=== PATIENT | female | born 1990 ===

== ENCOUNTER 2016-10-13 06:56 | Emergency (ER) | payer MEDICAID ==
[2016-10-13 07:12] VITALS: O2SAT 97
[2016-10-13] MEDS ORDERED: Albuterol-Ipratrop 3 mg / 0.5 (3 ml) UD INH STA (07:32)
[2016-10-13] MEDS ORDERED: Sodium Chloride 0.9% 1,000 ML IV STA (07:32)
[2016-10-13] MEDS ORDERED: Albuterol 0.083% Inhal Sol (2.5 mg/3 mL) UD INH STA (07:33)
[2016-10-13] MEDS ORDERED: Magnesium Sulfate 2 gm/50 ml 2 GM/50 ML BAG IV STA (07:40)
--- NOTE | 2016-10-13 07:44 | ED PDOC ---
HPI: SOB/CHF/COPD Time Seen by Provider: 10/13/16 07:09 Chief Complaint (Nursing): Shortness Of Breath Chief Complaint (Provider): Shortness of Breath History Per: Patient History/Exam Limitations: no limitations Onset/Duration Of Symptoms: Hrs (x2) Current Symptoms Are (Timing): Still Present Additional Complaint(s): Amara Dash is a 26 year old female with a past medical history of asthma presenting to the ED for an evaluation of shortness of breath beginning at 6:00 AM prior to arrival. The patient states she uses a Nebulizer when necessary for asthma, reporting 3 treatments without relief prior to arrival. The patient reports her last menstrual period was 1 month ago. She denies fever or chills. PMD: [place] Past Medical History Reviewed: Historical Data, Nursing Documentation, Vital Signs Vital Signs: Last Vital Signs Temp 98.2 F 10/13/16 07:09 Pulse 117 H 10/13/16 07:09 Resp 18 10/13/16 08:19 BP 123/74 10/13/16 07:09 Pulse Ox 97 10/13/16 08:29 - Medical History PMH: Asthma - Surgical History Other surgeries: removal of kidney stones - Family History Family History: States: Unknown Family Hx - Social History Current smoker - smoking cessation education provided: No Ex-Smoker (has not smoked in the last 12 months): No Alcohol: None Drugs: Denies - Allergies Allergies/Adverse Reactions: Allergies Allergy/AdvReac Type Severity Reaction Status Date / Time Penicillins Allergy SHORTNESS Verified 10/13/16 07:09 OF BREATH shellfish derived Allergy SHORTNESS Verified 10/13/16 07:09 OF BREATH Review of Systems ROS Statement: Except As Marked, All Systems Reviewed And Found Negative Respiratory: Positive for: Shortness of Breath Physical Exam - Reviewed Nursing Documentation Reviewed: Yes Vital Signs Reviewed: Yes - Physical Exam Appears: Positive for: Well, Non-toxic, No Acute Distress Head Exam: Positive for: ATRAUMATIC, NORMAL INSPECTION, NORMOCEPHALIC Eye Exam: Positive for: EOMI, Normal appearance, PERRL ENT: Positive for: Normal ENT Inspection, Pharynx Is (normal; oral mucous membranes are normal ). Negative for: Tonsillar Exudate Cardiovascular/Chest: Positive for: Regular Rate, Rhythm, Chest Non Tender Respiratory: Positive for: Decreased Breath Sounds (on expiration ), Wheezing ( faint wheezing bilaterally), Other (distant breath sounds ). Negative for: Crackles, Rales, Respiratory Distress Gastrointestinal/Abdominal: Positive for: Normal Exam, Bowel Sounds, Soft. Negative for: Tenderness Neurologic/Psych: Positive for: Alert, Oriented - Laboratory Results Result Diagrams: 10/13/16 07:59 10/13/16 07:59 - ECG ECG: Positive for: Viewed By Me ECG Rhythm: Positive for: Sinus Tachycardia O2 Sat by Pulse Oximetry: 97 (RA) Pulse Ox Interpretation: Normal - Progress Re-evaluation Time: 09:50 Condition: Re-examined, Improved (aeration is markedly improved. Will discharge) Medical Decision Making Medical Decision Makin:09 Impression: Exacerbation of asthma Plan: Pt reports refuses to take steroids because she "does not like the way they feel ". Will rx magnesium 2 mg IV with Duoneb * Basic metabolic panel * ED urine * CBC (with differential) * Peak Flow pre/post tx * Albuterol 0.083% Inh lamin 2.5/3 ml UD 2.5 mg Inh * Duoneb 3 mg/0.5 mg (3ml) UD 3 ml Inh * Magnesium Sulfate 2 gm/50 ml water IV * Sodium chloride 0.9% 1,000 ml IV 1,000 mls/hr * Reevaluation Scribe Attestation: Documented by Linda Dalton, acting as a scribe for Emily Vargas MD. Provider Scribe Attestation: All medical record entries made by the Scribe were at my direction and personally dictated by me. I have reviewed the chart and agree that the record accurately reflects my personal performance of the history, physical exam, medical decision making, and the department course for this patient. I have also personally directed, reviewed, and agree with the discharge instructions and disposition. Disposition - Clinical Impression Clinical Impression: Asthma exacerbation - Patient ED Disposition Is Patient to be Admitted: No Doctor Will See Patient In The: Office Counseled Patient/Family Regarding: Diagnosis, Need For Followup - Disposition [facility] [[facility]] Disposition: Routine/Home Disposition Time: 10:00 Condition: IMPROVED Instructions: Asthma (ED) Forms: [facility] (Wolof) - POA Present On Arrival: None
[2016-10-13 08:03] LABS: BASO # 0.1 K/uL (0.0-0.2); BASO % 0.9 % (0.0-2.0); EOS # 0.3 K/uL (0.0-0.7); EOS % 4.4 % (0.0-4.0); HEMATOCRIT 38.5 % (34.0-47.0); LYMPH # 2.1 K/uL (1.0-4.3); LYMPH % 35.9 % (20.0-40.0); MEAN CELL VOLUME 92.6 fl (81.0-99.0); MEAN CORPUSCULAR HEMOGLOBIN 31.4 pg (27.0-31.0); MEAN CORPUSCULAR HGB CONC 33.9 g/dL (33.0-37.0); MEAN PLATELET VOLUME 8.5 fl (7.2-11.7); MONO # 0.6 K/uL (0.0-0.8); MONO % 9.7 % (0.0-10.0); NEUT # 2.9 K/uL (1.8-7.0); NEUT % 49.1 % (50.0-75.0); NRBC % 0.1 % (0.0-0.0); RED CELL DISTRIBUTION WIDTH 13.1 % (11.5-14.5); WHITE BLOOD COUNT 5.8 K/uL (4.8-10.8)
[2016-10-13] MEDS ORDERED: Albuterol 0.083% Inhal Sol (2.5 mg/3 mL) UD ONE (08:04)
[2016-10-13] MEDS ORDERED: Albuterol-Ipratrop 3 mg / 0.5 (3 ml) UD ONE (08:05)
[2016-10-13] MEDS ORDERED: Magnesium Sulfate 2 gm/50 ml 2 GM/50 ML BAG ONE (08:05)
[2016-10-13 08:22] LABS: BLOOD UREA NITROGEN 8 mg/dl (7-17); CALCIUM 9.5 mg/dL (8.4-10.2); CARBON DIOXIDE 26 mmol/L (22-30); CHLORIDE 105 mmol/L (98-107); GFR AFRICAN-AMERICAN > 60; GLUCOSE,RANDOM 93 mg/dL (65-105); POTASSIUM 3.7 MMOL/L (3.6-5.0); SODIUM 139 mmol/l (132-148)
[2016-10-13 10:40] VITALS: BP 119/74; PULSE 76; RESP 16; TEMP 97
== END 2016-10-13 10:40 | disposition home or self-care (01) ==
LOC: H.ER 06:56
DX: J45.901 Unspecified asthma with (acute) exacerbation (principal); Z88.0 Allergy status to penicillin

== ENCOUNTER 2016-11-29 10:43 | Emergency (ER) | payer MEDICAID ==
[2016-11-29] MEDS ORDERED: Sodium Chloride 0.9% 1,000 ML IV STA (10:49)
[2016-11-29] MEDS ORDERED: Albuterol-Ipratrop 3 mg / 0.5 (3 ml) UD IH STA (10:49)
[2016-11-29] MEDS ORDERED: Magnesium Sulfate 2 gm/50 ml 2 GM/50 ML BAG IVPB ONE (10:50)
[2016-11-29 10:52] VITALS: RESP 18; O2SAT 99
[2016-11-29] MEDS ORDERED: Albuterol 0.083% Inhal Sol (2.5 mg/3 mL) UD ONE (11:20)
[2016-11-29] MEDS ORDERED: Magnesium Sulfate 2 gm/50 ml 2 GM/50 ML BAG ONE (11:21)
--- NOTE | 2016-11-29 11:30 | ED PDOC ---
HPI: SOB/CHF/COPD Time Seen by Provider: 11/29/16 10:46 Chief Complaint (Nursing): Shortness Of Breath Chief Complaint (Provider): Shortness Of Breath History Per: Patient History/Exam Limitations: no limitations Onset/Duration Of Symptoms: Days (x1) Current Symptoms Are (Timing): Still Present Additional Complaint(s): Amara is a 26 y/o female who was brought by EMS after experiencing worsening shortness of breath and wheezing at home this morning. Symptoms began after patient used cleaning materials. No improvement with home nebulizer treatment. Patient received additional nebulizer treatment and SOLU-medrol 125 mg IV from EMS. Patient also with non-productive cough. No fever or chest pain. PMD: Unknown Past Medical History Reviewed: Historical Data, Nursing Documentation, Vital Signs Vital Signs: Last Vital Signs Temp 96 F L 11/29/16 10:49 Pulse 60 11/29/16 10:49 Resp 18 11/29/16 10:49 BP 112/46 L 11/29/16 10:49 Pulse Ox 99 11/29/16 11:31 - Medical History PMH: Asthma - Family History Family History: States: Unknown Family Hx - Home Medications Home Medications: Ambulatory Orders Medication Instructions Recorded Albuterol HFA [Ventolin HFA 90 2 puff IH [id number] #1 puff /16/ mcg/actuation (8 g)] Albuterol HFA [Ventolin HFA 90 2 puff IH Q4H #1 puff 11/29/16 mcg/actuation (8 g)] Methylprednisolone [Medrol Dose 4 mg PO DAILY #21 tab 11/29/16 Pack (21 tabs)] - Allergies Allergies/Adverse Reactions: Allergies Allergy/AdvReac Type Severity Reaction Status Date / Time Penicillins Allergy SHORTNESS Verified 11/29/16 10:46 OF BREATH shellfish derived Allergy SHORTNESS Verified 11/29/16 10:46 OF BREATH Review of Systems ROS Statement: Except As Marked, All Systems Reviewed And Found Negative Constitutional: Negative for: Fever Cardiovascular: Negative for: Chest Pain Respiratory: Positive for: Cough, Shortness of Breath, Wheezing Physical Exam - Reviewed Nursing Documentation Reviewed: Yes Vital Signs Reviewed: Yes - Physical Exam Appears: Positive for: Non-toxic, No Acute Distress Head Exam: Positive for: ATRAUMATIC, NORMAL INSPECTION, NORMOCEPHALIC Skin: Positive for: Normal Color, Warm, Dry Eye Exam: Positive for: EOMI, Normal appearance, PERRL Neck: Positive for: Normal, Supple Cardiovascular/Chest: Positive for: Tachycardia. Negative for: Murmur Respiratory: Positive for: Decreased Breath Sounds (in the upper air narayan), Respiratory Distress (mild). Negative for: Wheezing Gastrointestinal/Abdominal: Positive for: Normal Exam, Soft. Negative for: Tenderness Extremity: Positive for: Normal ROM. Negative for: Pedal Edema, Deformity Neurologic/Psych: Positive for: Alert, Oriented (x3). Negative for: Motor/ Sensory Deficits - Laboratory Results Result Diagrams: 11/29/16 11:43 - ECG O2 Sat by Pulse Oximetry: 99 (NC) Pulse Ox Interpretation: Normal Medical Decision Making Medical Decision Making: Time: 10:49 Initial Plan: --CMP --CBC --Urine dipstick --Urine test --EKG --Chest x-ray 2 views --NS IV 1000 ml at 100 mls/hr --Duoneb 3 ml INH --Magnesium sulfate IV --Peak Flow pre/post treatment Advised 24 bhr obs as pt needed IV Magnesium Sulfate. Feels better. No resp distress. Lungs clear bilat. Scribe Attestation: Documented by Ophelia Berg, acting as a scribe for Bi Mathew MD Provider Scribe Attestation: All medical record entries made by the Scribe were at my direction and personally dictated by me. I have reviewed the chart and agree that the record accurately reflects my personal performance of the history, physical exam, medical decision making, and the department course for this patient. I have also personally directed, reviewed, and agree with the discharge instructions and disposition. Disposition - Clinical Impression Clinical Impression: Asthma exacerbation - Patient ED Disposition Is Patient to be Admitted: No Counseled Patient/Family Regarding: Studies Performed, Diagnosis, Need For Followup, Rx Given - Disposition Referrals: [facility] [Outside] Disposition: Routine/Home Disposition Time: 12:42 Condition: FAIR Prescriptions: Albuterol HFA [Ventolin HFA 90 mcg/actuation (8 g)] 2 puff IH Q4H #1 puff Methylprednisolone [Medrol Dose Pack (21 tabs)] 4 mg PO DAILY #21 tab Instructions: Asthma (ED) Forms: [employer] (Congolese)
[2016-11-29 11:48] LABS: BASO # 0.1 K/uL (0.0-0.2); BASO % 0.7 % (0.0-2.0); EOS # 0.2 K/uL (0.0-0.7); EOS % 2.8 % (0.0-4.0); HEMATOCRIT 39.2 % (34.0-47.0); LYMPH # 1.6 K/uL (1.0-4.3); LYMPH % 21.3 % (20.0-40.0); MEAN CELL VOLUME 92.4 fl (81.0-99.0); MEAN CORPUSCULAR HEMOGLOBIN 30.8 pg (27.0-31.0); MEAN CORPUSCULAR HGB CONC 33.3 g/dL (33.0-37.0); MEAN PLATELET VOLUME 8.3 fl (7.2-11.7); MONO # 0.3 K/uL (0.0-0.8); MONO % 3.4 % (0.0-10.0); NEUT # 5.2 K/uL (1.8-7.0); NEUT % 71.8 % (50.0-75.0); NRBC % 0.1 % (0.0-0.0); RED CELL DISTRIBUTION WIDTH 12.8 % (11.5-14.5); WHITE BLOOD COUNT 7.3 K/uL (4.8-10.8)
[2016-11-29 12:43] LABS: ALB/GLOB RATIO 1.3 (1.0-2.1); ALKALINE PHOSPHATASE 71 U/L (38-126); ALT/SGPT 28 U/L (9-52); AST/SGOT 34 U/L (14-36); BILIRUBIN,TOTAL 0.7 mg/dl (0.2-1.3); BLOOD UREA NITROGEN 10 mg/dl (7-17); CALCIUM 9.1 mg/dL (8.4-10.2); CARBON DIOXIDE 23 mmol/L (22-30); CHLORIDE 108 mmol/L (98-107); GFR AFRICAN-AMERICAN > 60; GLUCOSE,RANDOM 112 mg/dL (65-105); POTASSIUM 3.4 MMOL/L (3.6-5.0); SODIUM 144 mmol/l (132-148); TOTAL PROTEIN 7.3 G/DL (6.3-8.2)
--- NOTE | 2016-11-29 12:49 | RAD ---
HISTORY: SOB COMPARISON: No prior. TECHNIQUE: Chest PA and lateral FINDINGS: LUNGS: The lungs are well inflated and clear. PLEURA: No significant pleural effusion identified. No pneumothorax apparent. CARDIOVASCULAR: Normal. OSSEOUS STRUCTURES: No significant abnormalities. VISUALIZED UPPER ABDOMEN: Normal. OTHER FINDINGS: None. IMPRESSION: No active pulmonary disease.
[2016-11-29 12:59] VITALS: BP 123/76; PULSE 87; TEMP 98.2
--- NOTE | 2016-11-30 09:42 | CARD ---
APPROVED REPORT EKG Measurement Heart [id number] <Conclusion> Normal sinus rhythm Normal ECG
== END 2016-11-29 12:59 | disposition home or self-care (01) ==
LOC: H.ER 10:43
DX: J45.901 Unspecified asthma with (acute) exacerbation (principal)
CPT/HCPCS: 71020; 80053; 81025; 85025; 93005; 99284; J7040